=== PATIENT | male | born 1950 | race Caucasian/White ===

== ENCOUNTER 2018-05-20 07:32 | Observation (INO) | payer MEDICARE, BC ==
[~2018-05-20] VITALS: Ht 185.4 cm; Wt 75.0 kg
[~2018-05-20 07:32] MED LIST: APIX5TAB PO; ATOR20TA PO; FLEC50TA25 PO; LISI30TA4 PO
[2018-05-20] MEDS ORDERED: SODIUM CHLORIDE 0.9% 1,000 ML IV SCH ×2 (07:49→08:00)
[2018-05-20 07:54] VITALS: BP 125/94
[2018-05-20] MEDS ORDERED: TAMS-11 PO (08:13)
[2018-05-20] MEDS ORDERED: MIDAZOLAM 1 MG/ML, 2ML ONE (08:18)
[2018-05-20] MEDS ORDERED: FENTANYL PF 250 MCG/5ML ONE (08:19)
[2018-05-20] MEDS ORDERED: PLEASE ENTER HEIGHT AND WEIGHT MC SCH (08:30)
[2018-05-20] MEDS ORDERED: ADENOSINE 6 MG/2 ML ONE (08:44)
[2018-05-20] MEDS ORDERED: ISOPROTERENOL 0.2MG/ML, 5ML ONE (08:44)
[2018-05-20] MEDS ORDERED: PROTAMINE SULFATE 10 MG/ML, 5ML ONE (08:44)
[2018-05-20] MEDS ORDERED: ROCURONIUM 10 MG/ML,10ML ONE (09:04)
[2018-05-20] MEDS ORDERED: PROPOFOL 10 MG/ML, 20ML ONE (09:04)
[2018-05-20] MEDS ORDERED: DEXAMETHASONE 4 MG/ML, 1ML ONE (09:04)
[2018-05-20] MEDS ORDERED: ONDANSETRON 2MG/ML, 2ML ONE (09:04)
[2018-05-20] MEDS ORDERED: SUCCINYLCHOLINE 20 MG/ML, 10ML ONE (09:04)
[2018-05-20] MEDS ORDERED: LIDOCAINE/PF 1%, 30ML ONE (09:10)
[2018-05-20] MEDS ORDERED: HEPARIN 1,000 UNITS/ML, 10ML ONE ×3 (11:30)
[2018-05-20] MEDS ORDERED: FENTANYL PF 100 MCG/2ML ONE (11:59)
[2018-05-20] MEDS ORDERED: PROMETHAZINE 25 MG SUPP PR PRN (12:30)
[2018-05-20] MEDS ORDERED: MORPHINE SULFATE 4 MG/ML, 1ML IVPush PRN (12:30)
[2018-05-20] MEDS ORDERED: OXYcodone 5 MG/5 ML ORAL.SOL UDC PO PRN (12:30)
[2018-05-20] MEDS ORDERED: ONDANSETRON ODT 8 MG PO PRN (12:30)
[2018-05-20] MEDS ORDERED: PROMETHAZINE 12.5 MG SUPP PR PRN (12:30)
[2018-05-20] MEDS ORDERED: MIDAZOLAM 1 MG/ML, 2ML IV PRN (12:30)
[2018-05-20] MEDS ORDERED: DIPHENHYDRAMINE 50 MG/ML, 1ML IVPush PRN (12:30)
[2018-05-20] MEDS ORDERED: ONDANSETRON 2MG/ML, 2ML IV PRN (12:30)
[2018-05-20] MEDS: FLECAINIDE 100MG TABLET PO SCH (12:30)
[2018-05-20] MEDS ORDERED: FENTANYL PF 100 MCG/2ML IV PRN (12:30)
[2018-05-20] MEDS ORDERED: ACETAMINOPHEN 325 MG TABLET PO PRN ×2 (12:30)
[2018-05-20] MEDS ORDERED: ZOLPIDEM 5MG TABLET PO PRN (12:30)
[2018-05-20] MEDS ORDERED: LABETALOL 5MG/ML, 20ML IV PRN (12:30)
[2018-05-20] MEDS ORDERED: PROMETHAZINE 25 MG/ML, 1ML IV PRN (12:30)
[2018-05-20] MEDS: SODIUM CHLORIDE 0.9%, 500ML IVBOLUS PRN ×3 (13:15→19:35)
[2018-05-20] MEDS ORDERED: GLYCOPYRROLATE 0.4 MG/2 ML, 2ML ONE (13:17)
[2018-05-20] MEDS ORDERED: EPHEDRINE 50 MG/ML, 1ML ONE (13:17)
[2018-05-20] MEDS: GLYCOPYRROLATE 0.2MG/1ML, 5ML IVPush PRN ×2 (13:32→13:46)
[2018-05-20] MEDS: EPHEDRINE 50 MG/ML, 1ML IVPush PRN ×2 (13:35→13:45)
[2018-05-20 14:45] VITALS: BP 101/69
[2018-05-20] MEDS: SODIUM CHLORIDE 0.9% 1,000 ML IV SCH (17:30)
[2018-05-20 20:00] VITALS: BP 101/67
[2018-05-20] MEDS: APIXABAN 5 MG TABLET PO SCH (20:27)
[2018-05-20] MEDS ORDERED: ATORVASTATIN 20 MG TABLET PO SCH (21:00)
[2018-05-21] MEDS: SODIUM CHLORIDE 0.9% 1,000 ML IV SCH (00:10)
[2018-05-21] MEDS: FLECAINIDE 100MG TABLET PO SCH (00:34)
[2018-05-21 01:20] VITALS: BP 96/68
[2018-05-21 01:30] VITALS: BP 100/74
[2018-05-21 07:14] VITALS: BP 109/73
[2018-05-21] MEDS: APIXABAN 5 MG TABLET PO SCH (08:02)
[2018-05-21] MEDS ORDERED: TAMSULOSIN 0.4 MG CAP.ER.24H PO SCH (09:00)
[2018-05-21] MEDS ORDERED: FLEC100T PO (09:51)
== END 2018-05-21 11:04 | disposition home or self-care (01) ==
LOC: CACL 07:32 → ORIP 12:12 → 5SO 14:45 → DCLOUNGE 05-21 10:50
PROVIDERS: ADMIT Internal Medicine Cardiovascular Disease; ATTEND Internal Medicine Cardiovascular Disease
DX: I48.91 Unspecified atrial fibrillation (principal); I48.92 Unspecified atrial flutter; I10 Essential (primary) hypertension
CPT/HCPCS: 85347; 93312; 93320; 93325; 93613; 93655; 93656; 93662; C1730; C1731; C1732; C1759; C1760; C1766; C1893; C1894; G0378; J0330; J1100; J1644; J2250; J2405; J2704; J2720; J3010; J3490; J7030; J7040; J0153

== ENCOUNTER 2018-06-13 08:56 | Day surgery (SDC) | payer MEDICARE, BC ==
[~2018-06-13] VITALS: Ht 182.9 cm; Wt 72.7 kg
[~2018-06-13 08:56] MED LIST changes: +FLEC100T PO; +TAMS-11 PO
[2018-06-13 09:20] VITALS: BP 146/114
[2018-06-13 09:44] LABS: BASOPHILS # (AUTO) 0.01 x10^3/uL (0-0.1); BASOPHILS % (AUTO) 0 % (0-1); EOSINOPHILS # (AUTO) 0.13 x10^3/uL (0-0.4); EOSINOPHILS % (AUTO) 2 % (1-7); LYMPHOCYTES # (AUTO) 1.54 x10^3/uL (1-3.4); LYMPHOCYTES % (AUTO) 20 % (22-44); MD NO; MEAN CORPUSCULAR HEMOGLOBIN 32.9 pg (27.5-34.5); MEAN CORPUSCULAR HGB CONC 34.3 g/dL (33.2-36.2); MEAN CORPUSCULAR VOLUME 95.8 fL (81-97); MEAN PLATELET VOLUME 8.1 fL (7.4-10.4); MONOCYTES # (AUTO) 0.43 x10^3/uL (0.2-0.8); MONOCYTES % (AUTO) 6 % (2-9); NEUTROPHILS # (AUTO) 5.65 x10^3/uL (1.8-6.8); NEUTROPHILS % (AUTO) 73 % (42-75); PLATELET COUNT 282 x10^3/uL (130-400); RED BLOOD COUNT 5.05 x10^6/uL (4.38-5.82); RED CELL DISTRIBUTION WIDTH 13.6 % (9.4-14.8)
[2018-06-13 09:54] LABS: ANION GAP 5 mmol/L (5-15); CHLORIDE 108 mmol/L (98-107); CREATININE 0.83 mg/dL (0.7-1.3)
[2018-06-13] MEDS ORDERED: PROPOFOL 10 MG/ML, 20ML ONE (09:55)
== END 2018-06-13 11:30 | disposition home or self-care (01) ==
LOC: CACL 08:56
PROVIDERS: ATTEND Internal Medicine Cardiovascular Disease
DX: I48.0 Paroxysmal atrial fibrillation (principal); I48.92 Unspecified atrial flutter; I10 Essential (primary) hypertension; E78.5 Hyperlipidemia, unspecified; Z87.891 Personal history of nicotine dependence; Z79.899 Other long term (current) drug therapy; Z79.01 Long term (current) use of anticoagulants; Z72.89 Other problems related to lifestyle; Z82.49 Family history of ischemic heart disease and other diseases of the circulatory system
CPT/HCPCS: 36415; 80048; 85025; 92960; J2704